=== PATIENT | male | born 1945 | race African-American/Black ===

== ENCOUNTER 2018-08-12 17:53 | Emergency (ER) | payer OTHER ==
[~2018-08-12] VITALS: Ht 182.9 cm; Wt 82.0 kg
[~2018-08-12 17:53] MED LIST: ASPI-1159; VIT1TABL5
[2018-08-12 20:52] LABS: HEMATOCRIT. 43.5 % (42.0-52.0); HEMOGLOBIN. 14.3 g/dL (14.0-18.0); MEAN CORPUSCULAR HEMOGLOBIN 28.8 pg (28.0-32.0); MEAN CORPUSCULAR VOLUME 87.5 fL (80.0-94.0); MEAN PLATELET VOLUME 8.4 fl (7.4-10.4); PLATELET 173 x1000/uL (130-400); RED BLOOD CELL COUNT 4.98 mill/uL (4.7-6.1); RED CELL DISTRIBUTION WIDTH 15.1 % (11.6-14.6)
[2018-08-12 20:54] LABS: CHLORIDE 108 mEq/L (98-107)
[2018-08-12 21:30] LABS: PLATELET ESTIMATE NORMAL
[2018-08-12 22:53] VITALS: BP 146/79
== END 2018-08-12 22:57 | disposition home or self-care (01) ==
LOC: ER 17:53
DX: R55 Syncope and collapse (principal); I10 Essential (primary) hypertension; Z79.82 Long term (current) use of aspirin
CPT/HCPCS: 36415; 83880; 84484; 93005; 99284